=== PATIENT | male | born 1930 ===

== ENCOUNTER 2017-12-07 22:56 | Inpatient (IN) | payer MEDICARE, OTHER ==
[2017-12-07 22:56] VITALS: BMI 38.0
--- NOTE | 2017-12-07 23:07 | C.PDOC ---
History Of Present Illness 86 year old male presents to the ED from long-term for evaluation of rectal bleeding. Unable to obtain history from patient due to dementia. Per daughter, bleeding started today. Time Seen by Provider: 12/07/17 23:05 History Per: Family History/Exam Limitations: other (Dementia) Onset/Duration Of Symptoms: Hrs Additional History Per: Family Past Medical History Reviewed: Historical Data, Nursing Documentation, Vital Signs Vital Signs: Last Vital Signs Temp 98.9 F 12/07/17 23:10 Pulse 71 12/07/17 23:10 Resp 16 12/07/17 23:10 BP 145/65 12/07/17 23:10 Pulse Ox 95 12/08/17 00:00 - Medical History PMH: Alzheimer's Disease, Arthritis, Atrial Fibrillation, Cardia Arrhythmia (a fib), Diverticulitis, HTN Denies: Anxiety, Bipolar Disorder, Depression, Paranoia, Post Traumatic Stress Disorder, Chronic Kidney Disease, Schizophrenia Surgical History: Coronary Stent Denies: Pacemaker - [facility] Procedures CORONAR ARTERIOGR-2 CATH (05/12/04) ENDO RECTUM POLYPECTOMY (11/19/13) ENDOSC POLYPECTOMY OF LG INTEST (11/19/13) INSERT GASTRIC TUBE NEC (01/08/15) LEFT HEART CARDIAC CATH (05/12/04) LT HEART ANGIOCARDIOGRAM (05/12/04) OTHER C.A.T. SCAN (01/08/15) PACKED CELL TRANSFUSION (01/08/15) PERCUTAN ASPIRATION GB (01/08/15) REMOV CHOLECYSTOST TUBE (02/28/15) VACCINATION NEC (10/19/14) Family History: States: No Known Family Hx - Social History Hx Alcohol Use: No Hx Substance Use: No Review Of Systems Review Of Systems: ROS cannot be obtained secondary to pt's inabilty to answer questions. (due to dementia) Physical Exam - Physical Exam Appears: Non-toxic, No Acute Distress Skin: Warm, Dry, Pale Head: Normacephalic Eye(s): bilateral: Normal Inspection Oral Mucosa: Dry Neck: Trachea Midline, Supple Chest: Symmetrical Cardiovascular: Rhythm Regular (Rate Regular ) Respiratory: No Rales, No Rhonchi, No Wheezing Gastrointestinal/Abdominal: Soft, Distention (mildly distended, tympanic to percussion) Rectal: Other (bright red blood in rectal vault) Back: Normal Inspection Extremity: Normal ROM, Other (DP pulses 2+) Extremity: Bilateral: Atraumatic Neurological/Psych: No Oriented x3 (Alert and Oriented x1 ) Disoriented To: Place, Time, Situation ED Course And Treatment - Laboratory Results Result Diagrams: 12/07/17 23:40 12/07/17 23:40 ECG: Interpreted By Me, Viewed By Me ECG Rhythm: Sinus Rhythm (66), Nonspecific Changes O2 Sat by Pulse Oximetry: 95 Pulse Ox Interpretation: Normal - Radiology CXR: Interpreted by Me, Viewed By Me CXR Interpretation: Yes: Cardiomegaly. No: Infiltrates, Fracture, Pnemothorax Disposition Discussed With Dr.: Nas Escalona Comment: accepted the pt on his service and took over the care at 11:58 PM Doctor Will See Patient In The: Hospital Counseled Patient/Family Regarding: Studies Performed, Diagnosis - Disposition Disposition: HOSPITALIZED Disposition Time: 23:07 Condition: FAIR - POA Present On Arrival: Poor Glycemic Control - Clinical Impression Clinical Impression: Gastrointestinal hemorrhage - Scribe Statement The provider has reviewed the documentation as recorded by the Anand Craft Provider Attestation: All medical record entries made by the Andrewibe were at my direction and personally dictated by me. I have reviewed the chart and agree that the record accurately reflects my personal performance of the history, physical exam, medical decision making, and the department course for this patient. I have also personally directed, reviewed, and agree with the discharge instructions and disposition. Decision To Admit - Pt Status Changed To: Hospital Disposition Of: Inpatient - Admit Certification Admit to Inpatient:: After my assessment, the patient will require hospitalization for at least two midnights. This is because of the severity of symptoms shown, intensity of services needed, and/or the medical risk in this patient being treated as an outpatient. - InPatient: Physician Admission Certification: I certify that this patient requires 2 or more midnights of care for the following reason:: After my assessment, the patient will require hospitalization for at least two midnights. This is because of the severity of symptoms shown, intensity of services needed, and/or the medical risk in this patient being treated as an outpatient. - . Bed Request Type: Telemetry Admitting Physician: Nas Escalona Patient Diagnosis: Gastrointestinal hemorrhage
[2017-12-07] MEDS ORDERED: Pantoprazole 80 MG in Sodium Chloride 0.9% 100 ML IV STA (23:15)
[2017-12-07] MEDS ORDERED: Sodium Chloride 0.9% 1,000 ML IV ONE (23:15)
[2017-12-07 23:45] LABS: BASO # 0.1 K/uL (0.0-0.2); BASO % 0.8 % (0.0-2.0); EOS # 0.2 K/uL (0.0-0.7); EOS % 2.9 % (0.0-4.0); HEMOGLOBIN 10.5 g/dL (12.0-18.0); LYMPH # 1.3 K/uL (1.0-4.3); LYMPH % 19.9 % (20.0-40.0); MEAN CORPUSCULAR HEMOGLOBIN 33.6 pg (27.0-31.0); MEAN CORPUSCULAR HGB CONC 33.9 g/dL (33.0-37.0); MEAN PLATELET VOLUME 8.2 fL (7.2-11.7); MONO # 0.5 K/uL (0.0-0.8); MONO % 6.8 % (0.0-10.0); NEUT # 4.7 K/uL (1.8-7.0); NEUT % 69.6 % (50.0-75.0); RBC 3.14 Mil/uL (4.40-5.90); RED CELL DISTRIBUTION WIDTH 13.7 % (11.5-14.5); WHITE BLOOD COUNT 6.7 K/uL (4.8-10.8)
[2017-12-07] MEDS ORDERED: Pantoprazole 80 MG in Sodium Chloride 0.9% 100 ML IVP SCH (23:45)
[2017-12-07 23:52] LABS: INR 1.2; PROTHROMBIN TIME 13.3 SECONDS (9.7-12.2)
[2017-12-07 23:57] LABS: ALBUMIN 3.6 g/dL (3.5-5.0); ALT/SGPT 20 U/L (21-72); AST/SGOT 17 U/L (17-59); BLOOD UREA NITROGEN 22 mg/dL (9-20); CALCIUM 9.1 mg/dl (8.6-10.4); GFR AFRICAN-AMERICAN > 60; GFR NON-AFRICAN AMERICAN 52; LIPASE 237 U/L (23-300)
[2017-12-08] MEDS ORDERED: Pantoprazole 80 MG in Sodium Chloride 0.9% 100 ML IV SCH (01:05)
[2017-12-08] MEDS ORDERED: Iohexol 240 (50 ml) PO ONE (06:54)
[2017-12-08] MEDS ORDERED: Iohexol 240 (50 ml) ONE (07:02)
[2017-12-08 07:15] LABS: BASO % 0.7 % (0.0-2.0); EOS # 0.2 K/uL (0.0-0.7); EOS % 4.2 % (0.0-4.0); HEMOGLOBIN 9.9 g/dL (12.0-18.0); LYMPH # 1.7 K/uL (1.0-4.3); LYMPH % 31.2 % (20.0-40.0); MEAN CELL VOLUME 99.5 fL (80.0-94.0); MEAN CORPUSCULAR HEMOGLOBIN 34.1 pg (27.0-31.0); MEAN CORPUSCULAR HGB CONC 34.2 g/dL (33.0-37.0); MEAN PLATELET VOLUME 8.2 fL (7.2-11.7); MONO # 0.4 K/uL (0.0-0.8); NEUT # 3.1 K/uL (1.8-7.0); NEUT % 56.9 % (50.0-75.0); NRBC % 0.1 % (0.0-2.0); RBC 2.9 Mil/uL (4.40-5.90); RED CELL DISTRIBUTION WIDTH 13.7 % (11.5-14.5); WHITE BLOOD COUNT 5.5 K/uL (4.8-10.8)
[2017-12-08 07:20] LABS: INR 1.2; PROTHROMBIN TIME 13.7 SECONDS (9.7-12.2)
[2017-12-08 07:27] LABS: ALBUMIN 3.4 g/dL (3.5-5.0); ALT/SGPT 15 U/L (21-72); AST/SGOT 15 U/L (17-59); BLOOD UREA NITROGEN 23 mg/dL (9-20); CALCIUM 9.3 mg/dl (8.6-10.4); GFR AFRICAN-AMERICAN > 60; GFR NON-AFRICAN AMERICAN 57
[2017-12-08] MEDS ORDERED: Iohexol 300 100 ML IJ ONE (07:37)
--- NOTE | 2017-12-08 07:42 | RAD ---
Chest x-ray single frontal view History: GI bleeding. Comparison: 12/07/2017 Findings: Mild venous congestion. Right hilar prominence. Patchy increased markings at the left lung base. Enlarged ectatic aorta with calcification at the aortic knob. Mild cardiomegaly. Degenerative changes in the spine and shoulders. Impression: Mild venous congestion. Right hilar prominence. Patchy increased markings at the left lung base. Enlarged ectatic aorta with calcification at the aortic knob. Mild cardiomegaly.
--- NOTE | 2017-12-08 08:40 | CP.PCM.CON ---
<Alexandro Buchanan - Last Filed: 12/08/17 10:12> History of Present Illness - History of Present Illness History of Present Illness: PGY5 GI Fellow Consult Note Patient is an 86yo male with PMHx significant for prostate cancer s/p brachytherapy, CAD s/p PCI, CKD, diverticulosis/diverticulitis, HTN, Alzheimer' s dementia who presented to the ED with rectal bleeding. The patient suffers with dementia and cannot provide any history. I spoke with the patient's daughter and with [facility] staff to discuss this case. Per the [place], the patient experienced one episode of bright red blood per rectum yesterday morning. He AM plavix was held and he was monitored until the evening when he had a second episode and was immediately transferred to the ED. Per ED staff, he had small episode of BRBPR at around 4am. On my arrival at bedside, the patient has recently had a significant amount of melena with some fresh blood as well. He denies any pain or discomfort and vitals have been stable throughout. His most recent HGB per [place] was 10.8 on 08/26/17. PMHx: See HPI PSHx: cholecystostomy tube, appendectomy, PCI FHx: Discussed with daughter who does not note any significant family history Social: No prior EtOH, tobacco or illicit drug use Endo: Colonoscopy - 11/2013 - multiple polyps, tubular adenomas 12 system ROS cannot be performed given clinical condition Past Patient History - Infectious Disease Hx of Infectious Diseases: None - Tetanus Immunizations Tetanus Immunization: Unknown - Past Social History Smoking Status: Former Smoker - CARDIAC Hx Atrial Fibrillation: Yes Hx Cardia Arrhythmia: Yes (a fib) Hx Hypertension: Yes Hx Pacemaker: No - PULMONARY Hx Respiratory Disorders: No - NEUROLOGICAL Hx Alzheimer's Disease: Yes - HEENT Hx HEENT Problems: No - RENAL Hx Chronic Kidney Disease: No - ENDOCRINE/METABOLIC Hx Endocrine Disorders: No - HEMATOLOGICAL/ONCOLOGICAL Hx Blood Disorders: Yes Hx Blood Transfusions: Yes (01/2015) Hx Blood Transfusion Reaction: No - INTEGUMENTARY Hx Dermatological Problems: No - MUSCULOSKELETAL/RHEUMATOLOGICAL Hx Arthritis: Yes - GASTROINTESTINAL Hx Diverticulitis: Yes - GENITOURINARY/GYNECOLOGICAL Hx Genitourinary Disorders: No - PSYCHIATRIC Hx Anxiety: No Hx Bipolar Disorder: No Hx Depression: No Hx Paranoia: No Hx Post Traumatic Stress Disorder: No Hx Schizophrenia: No Hx Substance Use: No - SURGICAL HISTORY Hx Coronary Stent: Yes - ANESTHESIA Hx Anesthesia: Yes Hx Anesthesia Reactions: No Hx Malignant Hyperthermia: No Meds Allergies/Adverse Reactions: Allergies Allergy/AdvReac Type Severity Reaction Status Date / Time No Known Allergies Allergy Verified 12/07/17 23:13 - Medications Medications: Current Medications Pantoprazole Sodium 80 mg/ (Sodium Chloride) 100 mls @ 10 mls/hr IV .Q10H PEPE PRN Reason: 8 MG/HR Last Admin: 12/08/17 01:07 Dose: 10 mls/hr Physical Exam - Constitutional Appears: No Acute Distress, Confused - Eye Exam Eye Exam: EOMI, PERRL Additional comments: scleral pallor - ENT Exam ENT Exam: Mucous Membranes Dry - Respiratory Exam Respiratory Exam: Clear to Auscultation Bilateral. absent: Rales, Rhonchi, Wheezes - Cardiovascular Exam Cardiovascular Exam: Bradycardia, REGULAR RHYTHM, +S1, +S2 - GI/Abdominal Exam GI & Abdominal Exam: Normal Bowel Sounds, Soft. absent: Distended, Firm, Guarding, Organomegaly, Rigid, Tenderness - Rectal Exam Rectal Exam: absent: Hemorrhoids Additional comments: black tarry stool noted on bed sheets with some fresh blood; brown stool in rectal vault - Extremities Exam Extremities exam: Positive for: normal inspection. Negative for: pedal edema - Neurological Exam Neurological exam: Altered - Psychiatric Exam Psychiatric exam: Normal Affect, Normal Mood - Skin Skin Exam: Dry, Warm Results - Vital Signs Recent Vital Signs: Last Vital Signs Temp 97.6 F 12/08/17 04:58 Pulse 65 12/08/17 08:10 Resp 18 12/08/17 08:10 BP 145/45 L 12/08/17 08:10 Pulse Ox 99 12/08/17 08:10 - Labs Result Diagrams: 12/08/17 07:12 12/08/17 07:12 Labs: Laboratory Results - last 24 hr 12/07/17 12/07/17 12/07/17 23:40 23:40 23:40 WBC 6.7 RBC 3.14 L Hgb 10.5 L Hct 31.1 L MCV 99.0 H MCH 33.6 H MCHC 33.9 RDW 13.7 Plt Count 243 MPV 8.2 Neut % (Auto) 69.6 Lymph % (Auto) 19.9 L [place] % (Auto) 6.8 Eos % (Auto) 2.9 Baso % (Auto) 0.8 Neut # (Auto) 4.7 Lymph # (Auto) 1.3 [place] # (Auto) 0.5 Eos # (Auto) 0.2 Baso # (Auto) 0.1 PT 13.3 H INR 1.2 APTT 33 Sodium Potassium Chloride Carbon Dioxide Anion Gap BUN Creatinine Est GFR ( Amer) Est GFR (Non-Af Amer) Random Glucose Calcium Total Bilirubin AST ALT Alkaline Phosphatase Total Protein Albumin Globulin Albumin/Globulin Ratio Lipase Stool Occult Blood Positive H Blood Type Antibody Screen 12/07/17 12/07/17 12/08/17 23:40 23:40 07:12 WBC 5.5 RBC 2.90 L Hgb 9.9 L Hct 28.9 L MCV 99.5 H MCH 34.1 H MCHC 34.2 RDW 13.7 Plt Count 195 MPV 8.2 Neut % (Auto) 56.9 Lymph % (Auto) 31.2 [place] % (Auto) 7.0 Eos % (Auto) 4.2 H Baso % (Auto) 0.7 Neut # (Auto) 3.1 Lymph # (Auto) 1.7 [place] # (Auto) 0.4 Eos # (Auto) 0.2 Baso # (Auto) 0.0 PT INR APTT Sodium 145 Potassium 3.3 L Chloride 110 H Carbon Dioxide 24 Anion Gap 15 BUN 22 H Creatinine 1.3 Est GFR ( Amer) > 60 Est GFR (Non-Af Amer) 52 Random Glucose 148 H Calcium 9.1 Total Bilirubin 0.2 AST 17 ALT 20 L Alkaline Phosphatase 128 H Total Protein 7.2 Albumin 3.6 Globulin 3.6 Albumin/Globulin Ratio 1.0 Lipase 237 Stool Occult Blood Blood Type O NEGATIVE Antibody Screen Negative 12/08/17 12/08/17 07:12 07:12 WBC RBC Hgb Hct MCV MCH MCHC RDW Plt Count MPV Neut % (Auto) Lymph % (Auto) [place] % (Auto) Eos % (Auto) Baso % (Auto) Neut # (Auto) Lymph # (Auto) [place] # (Auto) Eos # (Auto) Baso # (Auto) PT 13.7 H INR 1.2 APTT Sodium 145 Potassium 3.4 L Chloride 111 H Carbon Dioxide 22 Anion Gap 15 BUN 23 H Creatinine 1.2 Est GFR ( Amer) > 60 Est GFR (Non-Af Amer) 57 Random Glucose 117 H Calcium 9.3 Total Bilirubin 0.2 AST 15 L ALT 15 L D Alkaline Phosphatase 112 Total Protein 6.7 Albumin 3.4 L Globulin 3.3 Albumin/Globulin Ratio 1.0 Lipase Stool Occult Blood Blood Type Antibody Screen Assessment & Plan - Assessment and Plan (Free Text) Assessment: Patient is an 86yo male with PMHx significant for prostate cancer s/p brachytherapy, CAD s/p PCI, CKD, diverticulosis/diverticulitis, HTN, Alzheimer' s dementia who presented to the ED with rectal bleeding -Acute blood loss anemia -Severe constipation -Diverticulosis/diverticulitis -CAD s/p PCI on Plavix -H/O prostate cancer s/p brachytherapy -Alzheimer's dementia Plan: -Continue resuscitation with IVF and blood transfusion as needed -Monitor CBC Q12H -Change PPI gtt to IV BID -As patient remains hemodynamically stable and has brown stool in rectal vault, with recent plavix use - will continue supportive measures and consider endoscopy during this admission if indicated -CT A/P pending -Continue to hold plavix -Liquid diet - Date & Time Date: 12/08/17 Time: 06:50 <Ed Mullins - Last Filed: 12/08/17 10:58> Meds - Medications Medications: Current Medications Albuterol/Ipratropium (Duoneb 3 Mg/0.5 Mg (3 Ml) Ud) 3 ml IH RQ6 PRN PRN Reason: Shortness of Breath Potassium Chloride (Potassium Chloride 20 Meq/100 Ml) 20 meq in 100 mls @ 50 mls/hr IVPB ONCE ONE Stop: 12/08/17 10:50 Last Admin: 12/08/17 10:08 Dose: 50 mls/hr Sodium Chloride (Sodium Chloride 0.9%) 1,000 mls @ 50 mls/hr IV .Q20H PEPE Last Admin: 12/08/17 09:48 Dose: 50 mls/hr Pantoprazole Sodium (Protonix Inj) 40 mg IVP Q12H PEPE Results - Vital Signs Recent Vital Signs: Last Vital Signs Temp 97.6 F 12/08/17 04:58 Pulse 62 12/08/17 10:15 Resp 16 12/08/17 10:15 BP 155/45 H 12/08/17 10:15 Pulse Ox 99 02/25/18 10:15 - Labs Result Diagrams: 12/08/17 07:12 12/08/17 07:12 Labs: Laboratory Results - last 24 hr 12/07/17 12/07/17 12/07/17 23:40 23:40 23:40 WBC 6.7 RBC 3.14 L Hgb 10.5 L Hct 31.1 L MCV 99.0 H MCH 33.6 H MCHC 33.9 RDW 13.7 Plt Count 243 MPV 8.2 Neut % (Auto) 69.6 Lymph % (Auto) 19.9 L [place] % (Auto) 6.8 Eos % (Auto) 2.9 Baso % (Auto) 0.8 Neut # (Auto) 4.7 Lymph # (Auto) 1.3 [place] # (Auto) 0.5 Eos # (Auto) 0.2 Baso # (Auto) 0.1 PT 13.3 H INR 1.2 APTT 33 Sodium Potassium Chloride Carbon Dioxide Anion Gap BUN Creatinine Est GFR ( Amer) Est GFR (Non-Af Amer) Random Glucose Calcium Total Bilirubin AST ALT Alkaline Phosphatase Total Protein Albumin Globulin Albumin/Globulin Ratio Lipase Stool Occult Blood Positive H Blood Type Antibody Screen 12/07/17 12/07/17 12/08/17 23:40 23:40 07:12 WBC 5.5 RBC 2.90 L Hgb 9.9 L Hct 28.9 L MCV 99.5 H MCH 34.1 H MCHC 34.2 RDW 13.7 Plt Count 195 MPV 8.2 Neut % (Auto) 56.9 Lymph % (Auto) 31.2 [place] % (Auto) 7.0 Eos % (Auto) 4.2 H Baso % (Auto) 0.7 Neut # (Auto) 3.1 Lymph # (Auto) 1.7 [place] # (Auto) 0.4 Eos # (Auto) 0.2 Baso # (Auto) 0.0 PT INR APTT Sodium 145 Potassium 3.3 L Chloride 110 H Carbon Dioxide 24 Anion Gap 15 BUN 22 H Creatinine 1.3 Est GFR ( Amer) > 60 Est GFR (Non-Af Amer) 52 Random Glucose 148 H Calcium 9.1 Total Bilirubin 0.2 AST 17 ALT 20 L Alkaline Phosphatase 128 H Total Protein 7.2 Albumin 3.6 Globulin 3.6 Albumin/Globulin Ratio 1.0 Lipase 237 Stool Occult Blood Blood Type O NEGATIVE Antibody Screen Negative 12/08/17 12/08/17 07:12 07:12 WBC RBC Hgb Hct MCV MCH MCHC RDW Plt Count MPV Neut % (Auto) Lymph % (Auto) [place] % (Auto) Eos % (Auto) Baso % (Auto) Neut # (Auto) Lymph # (Auto) [place] # (Auto) Eos # (Auto) Baso # (Auto) PT 13.7 H INR 1.2 APTT Sodium 145 Potassium 3.4 L Chloride 111 H Carbon Dioxide 22 Anion Gap 15 BUN 23 H Creatinine 1.2 Est GFR ( Amer) > 60 Est GFR (Non-Af Amer) 57 Random Glucose 117 H Calcium 9.3 Total Bilirubin 0.2 AST 15 L ALT 15 L D Alkaline Phosphatase 112 Total Protein 6.7 Albumin 3.4 L Globulin 3.3 Albumin/Globulin Ratio 1.0 Lipase Stool Occult Blood Blood Type Antibody Screen Attending/Attestation - Attestation I have personally seen and examined this patient.: Yes I have fully participated in the care of the patient.: Yes I have reviewed all pertinent clinical information: Yes Notes (Text): 12/08/17 10:48 I have seen and examined patient with GI fellow. Agree with above documentation with the following additions. In brief, this is an 86 year old male with history of prostate cancer, CAD s/p stent on plavix, CKD, HTN, dementia who presents to hospital from nursing facility with complaint of rectal bleeding which started yesterday. Patient is unable to participate in meaningful conversation due to underlying dementia, additional history obtained via chart review, discussion with patient's daughter and nursing staff at nursing facility. He apparently had an episode of bright red rectal bleeding yesterday at which point his plavix was held. He was not offering additional complaints of abdominal pain, nausea, vomiting, fever/chills, weight loss. He had a colonoscopy in 2013 which showed multiple colon polyps and diverticulosis. Review of vitals from today are normal. CAD s/p stent on plavix (currently held) CKD HTN Dementia Rectal bleeding - rectal exam performed by me shows mixed brown stool with bright red blood, no palpable lesions, normal sphincter tone CT imaging reviewed by me showing distended rectum with associated wall thickening, scattered diverticulosis, constipation - Liquid diet as tolerated - H/H stable, continue to monitor - Continue with PPI therapy - Begin stool softner therapy - Conservative management with IVF hydration - Given recent plavix use, will hold off on endoscopic evaluation for time being and continue to monitor. If recurrent bleeding noted, patient would benefit from colonoscopy. Differential includes stercoral ulcer, diverticular/ hemorrhoid bleeding, or underlying malignancy. Will continue to monitor clinical course.
[2017-12-08] MEDS ORDERED: Albuterol-Ipratrop 3 mg / 0.5 (3 ml) UD IH PRN (08:49)
--- NOTE | 2017-12-08 09:13 | CT ---
CT abdomen and pelvis History: Rectal bleeding. Comparison: None available. Technique: Multiple contiguous axial images were performed through the abdomen and pelvis with the use of intravenous contrast. Subsequently, sagittal and coronal reformatted images were obtained. This CT exam was performed using one or more of the following dose reduction techniques: Automated exposure control, adjustment of the mA and/or kV according to patient size, and/or use of iterative reconstruction technique. Findings: Limited evaluation of the lung bases demonstrates some scarring and fibrotic changes. Superimposed atelectasis. 2 millimeter subpleural nodular density along the anterior aspect of the right middle lobe. 2 millimeter nodule within the right lower lobe on series 3, image 11. Coronary calcifications. No pleural or pericardial effusion. Prominent liver with mild intrahepatic biliary ductal dilatation. Underdistended/contracted and or resected gallbladder. Mildly prominent common bile duct. Clinical correlation. Spleen is preserved. Mild nodularity of the adrenal glands. Pancreas is preserved. Upper abdominal bowel is preserved. Right kidney: 7 millimeter partially exophytic hypoattenuated focus off the midpole of the right kidney, too small to adequately characterize. Left Kidney: Punctate hypodensity in the midpole anteriorly of the left kidney, too small to adequately characterize. Underdistended urinary bladder. Heterogeneous prostate. Distended rectum with some with some associated rectal wall thickening. Mild adjacent fat stranding at that level. Underlying stercoral colitis cannot be excluded. Clinical correlation. Sigmoid diverticulosis. Minimal fat stranding adjacent to some diverticuli at the level of the distal descending colon. Fecal retention in the colon. Some motion artifact at the level of the cecum, somewhat limits evaluation. Cecal diverticula. Mild fat stranding at the posterior aspect of the cecum. Nonspecific. Appendix appears to be visualized on series 3, images 106 through 113 measuring up to 7 millimeters, upper limits of normal. Calcification and plaque within the aorta. Shotty mesenteric lymph nodes. Diffuse osteopenia. Mild loss of height of the superior endplates of the T11, L2, and L3 vertebral bodies. Multilevel anterior osteophyte formation throughout the thoracic spine. Multilevel Schmorl's nodes noted. Impression: Distended rectum with some with some associated rectal wall thickening. Mild adjacent fat stranding at that level. Underlying stercoral colitis cannot be excluded. Clinical correlation. Sigmoid diverticulosis. Minimal fat stranding adjacent to some diverticuli at the level of the distal descending colon. Fecal retention in the colon. Some motion artifact at the level of the cecum, somewhat limits evaluation. Cecal diverticula. Mild fat stranding at the posterior aspect of the cecum. Nonspecific. Additional findings as above.
[2017-12-08] MEDS: Sodium Chloride 0.9% 1,000 ML IV SCH (09:48)
[2017-12-08 11:47] LABS: SQUAMOUS EPITHIAL < 1 /hpf (0-5); URINE BILIRUBIN NEGATIVE (NEGATIVE); URINE BLOOD 1+ (NEGATIVE); URINE CLARITY Clear (Clear); URINE COLOR Yellow (YELLOW); URINE GLUCOSE (UA) NORMAL (Normal); URINE LEUKOCYTE ESTERASE NEG Leu/uL (Negative); URINE NITRATE NEGATIVE (NEGATIVE); URINE PROTEIN 1+ mg/dL (NEGATIVE); URINE UROBILINOGEN NORMAL mg/dL (0.2-1.0)
[2017-12-08 15:31] LABS: LYMPH # 1.7 K/uL (1.0-4.3)
[2017-12-08 15:40] LABS: BASO % 0.6 % (0.0-2.0); EOS # 0.3 K/uL (0.0-0.7); EOS % 4.2 % (0.0-4.0); HEMOGLOBIN 10.9 g/dL (12.0-18.0); LYMPH % 27.5 % (20.0-40.0); MEAN CORPUSCULAR HEMOGLOBIN 33.5 pg (27.0-31.0); MEAN CORPUSCULAR HGB CONC 33.5 g/dL (33.0-37.0); MEAN PLATELET VOLUME 8.1 fL (7.2-11.7); MONO # 0.4 K/uL (0.0-0.8); MONO % 5.5 % (0.0-10.0); NEUT # 3.9 K/uL (1.8-7.0); NEUT % 62.2 % (50.0-75.0); RBC 3.25 Mil/uL (4.40-5.90); RED CELL DISTRIBUTION WIDTH 13.7 % (11.5-14.5); WHITE BLOOD COUNT 6.4 K/uL (4.8-10.8)
--- NOTE | 2017-12-08 16:27 | CP.PCM.HP ---
Past Patient History - Infectious Disease Hx of Infectious Diseases: None - Tetanus Immunizations Tetanus Immunization: Unknown - Past Social History Smoking Status: Former Smoker - CARDIAC Hx Atrial Fibrillation: Yes Hx Cardia Arrhythmia: Yes (a fib) Hx Hypertension: Yes Hx Pacemaker: No - PULMONARY Hx Respiratory Disorders: No - NEUROLOGICAL Hx Alzheimer's Disease: Yes - HEENT Hx HEENT Problems: No - RENAL Hx Chronic Kidney Disease: No - ENDOCRINE/METABOLIC Hx Endocrine Disorders: No - HEMATOLOGICAL/ONCOLOGICAL Hx Blood Disorders: Yes Hx Blood Transfusions: Yes (01/2015) Hx Blood Transfusion Reaction: No - INTEGUMENTARY Hx Dermatological Problems: No - MUSCULOSKELETAL/RHEUMATOLOGICAL Hx Arthritis: Yes - GASTROINTESTINAL Hx Diverticulitis: Yes - GENITOURINARY/GYNECOLOGICAL Hx Genitourinary Disorders: No - PSYCHIATRIC Hx Anxiety: No Hx Bipolar Disorder: No Hx Depression: No Hx Paranoia: No Hx Post Traumatic Stress Disorder: No Hx Schizophrenia: No Hx Substance Use: No - SURGICAL HISTORY Hx Coronary Stent: Yes - ANESTHESIA Hx Anesthesia: Yes Hx Anesthesia Reactions: No Hx Malignant Hyperthermia: No Meds Allergies/Adverse Reactions: Allergies Allergy/AdvReac Type Severity Reaction Status Date / Time No Known Allergies Allergy Verified 12/07/17 23:13 Physical Exam - Constitutional Appears: Well - Head Exam Head Exam: ATRAUMATIC, NORMAL INSPECTION, NORMOCEPHALIC - Eye Exam Eye Exam: EOMI, Normal appearance, PERRL Pupil Exam: NORMAL ACCOMODATION, PERRL - ENT Exam ENT Exam: Mucous Membranes Moist, Normal Exam - Neck Exam Neck exam: Positive for: Normal Inspection - Respiratory Exam Respiratory Exam: Decreased Breath Sounds - Cardiovascular Exam Cardiovascular Exam: REGULAR RHYTHM, +S1, +S2 - GI/Abdominal Exam GI & Abdominal Exam: Diminished Bowel Sounds, Soft - Rectal Exam Rectal Exam: Deferred Results - Vital Signs Recent Vital Signs: Last Vital Signs Temp 97.7 F 12/08/17 11:31 Pulse 61 12/08/17 15:19 Resp 18 12/08/17 15:19 BP 156/48 H 12/08/17 15:19 Pulse Ox 98 12/08/17 15:19 - Labs Result Diagrams: 12/08/17 15:27 12/08/17 07:12 Labs: Laboratory Results - last 24 hr 12/07/17 12/07/17 12/07/17 23:40 23:40 23:40 WBC 6.7 RBC 3.14 L Hgb 10.5 L Hct 31.1 L MCV 99.0 H MCH 33.6 H MCHC 33.9 RDW 13.7 Plt Count 243 MPV 8.2 Neut % (Auto) 69.6 Lymph % (Auto) 19.9 L Bacon % (Auto) 6.8 Eos % (Auto) 2.9 Baso % (Auto) 0.8 Neut # (Auto) 4.7 Lymph # (Auto) 1.3 Bacon # (Auto) 0.5 Eos # (Auto) 0.2 Baso # (Auto) 0.1 PT 13.3 H INR 1.2 APTT 33 Sodium Potassium Chloride Carbon Dioxide Anion Gap BUN Creatinine Est GFR ( Amer) Est GFR (Non-Af Amer) Random Glucose Calcium Total Bilirubin AST ALT Alkaline Phosphatase Total Protein Albumin Globulin Albumin/Globulin Ratio Lipase Urine Color Urine Clarity Urine pH Ur Specific [place] Urine Protein Urine Glucose (UA) Urine Ketones Urine Blood Urine Nitrate Urine Bilirubin Urine Urobilinogen Ur Leukocyte Esterase Urine WBC (Auto) Urine RBC (Auto) Ur Squamous Epith Cells Stool Occult Blood Positive H Blood Type Antibody Screen 12/07/17 12/07/17 12/08/17 23:40 23:40 07:12 WBC 5.5 RBC 2.90 L Hgb 9.9 L Hct 28.9 L MCV 99.5 H MCH 34.1 H MCHC 34.2 RDW 13.7 Plt Count 195 MPV 8.2 Neut % (Auto) 56.9 Lymph % (Auto) 31.2 Bacon % (Auto) 7.0 Eos % (Auto) 4.2 H Baso % (Auto) 0.7 Neut # (Auto) 3.1 Lymph # (Auto) 1.7 Bacon # (Auto) 0.4 Eos # (Auto) 0.2 Baso # (Auto) 0.0 PT INR APTT Sodium 145 Potassium 3.3 L Chloride 110 H Carbon Dioxide 24 Anion Gap 15 BUN 22 H Creatinine 1.3 Est GFR ( Amer) > 60 Est GFR (Non-Af Amer) 52 Random Glucose 148 H Calcium 9.1 Total Bilirubin 0.2 AST 17 ALT 20 L Alkaline Phosphatase 128 H Total Protein 7.2 Albumin 3.6 Globulin 3.6 Albumin/Globulin Ratio 1.0 Lipase 237 Urine Color Urine Clarity Urine pH Ur Specific [place] Urine Protein Urine Glucose (UA) Urine Ketones Urine Blood Urine Nitrate Urine Bilirubin Urine Urobilinogen Ur Leukocyte Esterase Urine WBC (Auto) Urine RBC (Auto) Ur Squamous Epith Cells Stool Occult Blood Blood Type O NEGATIVE Antibody Screen Negative 12/08/17 12/08/17 12/08/17 07:12 07:12 11:31 WBC RBC Hgb Hct MCV MCH MCHC RDW Plt Count MPV Neut % (Auto) Lymph % (Auto) Bacon % (Auto) Eos % (Auto) Baso % (Auto) Neut # (Auto) Lymph # (Auto) Bacon # (Auto) Eos # (Auto) Baso # (Auto) PT 13.7 H INR 1.2 APTT Sodium 145 Potassium 3.4 L Chloride 111 H Carbon Dioxide 22 Anion Gap 15 BUN 23 H Creatinine 1.2 Est GFR ( Amer) > 60 Est GFR (Non-Af Amer) 57 Random Glucose 117 H Calcium 9.3 Total Bilirubin 0.2 AST 15 L ALT 15 L D Alkaline Phosphatase 112 Total Protein 6.7 Albumin 3.4 L Globulin 3.3 Albumin/Globulin Ratio 1.0 Lipase Urine Color Yellow Urine Clarity Clear Urine pH 5.0 Ur Specific [place] 1.005 Urine Protein 1+ H Urine Glucose (UA) Normal Urine Ketones Negative Urine Blood 1+ H Urine Nitrate Negative Urine Bilirubin Negative Urine Urobilinogen Normal Ur Leukocyte Esterase Neg Urine WBC (Auto) 1 Urine RBC (Auto) 16 H Ur Squamous Epith Cells < 1 Stool Occult Blood Blood Type Antibody Screen 12/08/17 15:27 WBC 6.4 RBC 3.25 L Hgb 10.9 L Hct 32.5 L MCV 100.0 H MCH 33.5 H MCHC 33.5 RDW 13.7 Plt Count 227 MPV 8.1 Neut % (Auto) 62.2 Lymph % (Auto) 27.5 Bacon % (Auto) 5.5 Eos % (Auto) 4.2 H Baso % (Auto) 0.6 Neut # (Auto) 3.9 Lymph # (Auto) 1.7 Bacon # (Auto) 0.4 Eos # (Auto) 0.3 Baso # (Auto) 0.0 PT INR APTT Sodium Potassium Chloride Carbon Dioxide Anion Gap BUN Creatinine Est GFR ( Amer) Est GFR (Non-Af Amer) Random Glucose Calcium Total Bilirubin AST ALT Alkaline Phosphatase Total Protein Albumin Globulin Albumin/Globulin Ratio Lipase Urine Color Urine Clarity Urine pH Ur Specific [place] Urine Protein Urine Glucose (UA) Urine Ketones Urine Blood Urine Nitrate Urine Bilirubin Urine Urobilinogen Ur Leukocyte Esterase Urine WBC (Auto) Urine RBC (Auto) Ur Squamous Epith Cells Stool Occult Blood Blood Type Antibody Screen
[2017-12-08 23:34] LABS: BASO # 0.1 K/uL (0.0-0.2); BASO % 1.4 % (0.0-2.0); EOS # 0.3 K/uL (0.0-0.7); HEMOGLOBIN 9.8 g/dL (12.0-18.0); LYMPH % 32.4 % (20.0-40.0); MEAN CELL VOLUME 99.9 fL (80.0-94.0); MEAN PLATELET VOLUME 8.3 fL (7.2-11.7); MONO # 0.5 K/uL (0.0-0.8); MONO % 7.7 % (0.0-10.0); NEUT # 3.3 K/uL (1.8-7.0); NEUT % 53.5 % (50.0-75.0); RBC 2.88 Mil/uL (4.40-5.90); RED CELL DISTRIBUTION WIDTH 13.6 % (11.5-14.5); WHITE BLOOD COUNT 6.2 K/uL (4.8-10.8)
[2017-12-09] MEDS: Sodium Chloride 0.9% 1,000 ML IV SCH (05:12)
[2017-12-09 08:14] LABS: BASO % 0.8 % (0.0-2.0); EOS # 0.3 K/uL (0.0-0.7); EOS % 5.7 % (0.0-4.0); HEMOGLOBIN 9.2 g/dL (12.0-18.0); LYMPH # 1.5 K/uL (1.0-4.3); LYMPH % 28.3 % (20.0-40.0); MEAN CELL VOLUME 99.8 fL (80.0-94.0); MEAN CORPUSCULAR HEMOGLOBIN 33.5 pg (27.0-31.0); MEAN CORPUSCULAR HGB CONC 33.5 g/dL (33.0-37.0); MEAN PLATELET VOLUME 7.9 fL (7.2-11.7); MONO # 0.3 K/uL (0.0-0.8); MONO % 5.6 % (0.0-10.0); NEUT # 3.1 K/uL (1.8-7.0); NEUT % 59.6 % (50.0-75.0); RBC 2.74 Mil/uL (4.40-5.90); RED CELL DISTRIBUTION WIDTH 13.6 % (11.5-14.5); WHITE BLOOD COUNT 5.2 K/uL (4.8-10.8)
--- NOTE | 2017-12-09 08:18 | CP.PCM.PN ---
<ChanelAlexandro - Last Filed: 12/09/17 13:40> Subjective - Date & Time of Evaluation Date of Evaluation: 12/09/17 Time of Evaluation: 07:10 - Subjective Subjective: PGY5 GI Fellow Progress Note Patient seen and examined in the ER this morning. The patient continues to deny any complaints. Specifically, he denies any abdominal pain, nausea, vomiting, fever, chills, rectal pain. Per discussion with nursing, patient has had two small episodes of red, bloody stool since yesterday afternoon. Again this afternoon patient passing large amount of melena. Vitals have remained stable throughout hospitalization. 12 system ROS cannot be performed given patient's dementia. Objective - Vital Signs/Intake and Output Vital Signs (last 24 hours): Temp Pulse Resp BP Pulse Ox 97.5 F L 56 L 15 130/47 L 95 12/09/17 07:46 12/09/17 07:46 12/09/17 07:46 12/09/17 07:46 12/09/17 07:46 Intake and Output: 12/09/17 12/09/17 06:59 18:59 Intake Total 1000 Output Total 4 Balance 996 - Medications Medications: Current Medications Albuterol/Ipratropium (Duoneb 3 Mg/0.5 Mg (3 Ml) Ud) 3 ml IH RQ6 PRN PRN Reason: Shortness of Breath Docusate Sodium (Colace) 100 mg PO BID COUNTS INCLUDE 234 BEDS AT THE [facility] Last Admin: 12/08/17 19:39 Dose: 100 mg Sodium Chloride (Sodium Chloride 0.9%) 1,000 mls @ 50 mls/hr IV .Q20H COUNTS INCLUDE 234 BEDS AT THE [facility] Last Admin: 12/09/17 05:12 Dose: 50 mls/hr Pantoprazole Sodium (Protonix Inj) 40 mg IVP Q12H COUNTS INCLUDE 234 BEDS AT THE [facility] Last Admin: 12/08/17 23:08 Dose: 40 mg - Labs Labs: 12/08/17 23:31 12/08/17 07:12 PT 13.7 SECONDS (9.7-12.2) H 12/08/17 07:12 INR 1.2 12/08/17 07:12 APTT 33 SECONDS (21-34) 12/07/17 23:40 - Constitutional Appears: Non-toxic, No Acute Distress - Eye Exam Eye Exam: EOMI, PERRL - ENT Exam ENT Exam: Mucous Membranes Moist - Respiratory Exam Respiratory Exam: Clear to Ausculation Bilateral. absent: Rales, Rhonchi, Wheezes - Cardiovascular Exam Cardiovascular Exam: Bradycardia, +S1, +S2 - GI/Abdominal Exam GI & Abdominal Exam: Soft, Normal Bowel Sounds. absent: Distended, Firm, Guarding, Rigid, Tenderness, Organomegaly - Extremities Exam Extremities Exam: Normal Inspection. absent: Pedal Edema - Neurological Exam Neurological Exam: Altered, Awake - Psychiatric Exam Psychiatric exam: Normal Affect, Normal Mood - Skin Skin Exam: Dry, Warm Assessment and Plan - Assessment and Plan (Free Text) Assessment: Patient is an 86yo male with PMHx significant for prostate cancer s/p brachytherapy, CAD s/p PCI, CKD, diverticulosis/diverticulitis, HTN, Alzheimer' s dementia who presented to the ED with rectal bleeding -Acute blood loss anemia, melena -Severe constipation -Diverticulosis/diverticulitis -CAD s/p PCI on Plavix (currently held since 12/06) -CKD -HTN -H/O prostate cancer s/p brachytherapy -Alzheimer's dementia Plan: -Vitals remain stable throughout - HGB downtrending from admission -Recurrent melena noted -Change CBC to Q12H -Protonix 40mg IV BID -Colace 100mg PO BID -Continue to hold plavix - consider endoscopic intervention Saturday if bleeding continues -Given significant stool burden, patient could have stercoral ulcer; also with history of diverticulosis which could be etiology -Will perform urgent EGD today given persistence of melena despite medical therapy -Patient's has given consent for procedure - understands risks/benefits <Conrad Reid - Last Filed: 12/09/17 21:14> Objective - Vital Signs/Intake and Output Vital Signs (last 24 hours): Temp Pulse Resp BP Pulse Ox 97.3 F L 58 L 20 159/56 H 98 12/09/17 16:35 12/09/17 16:35 12/09/17 16:35 12/09/17 16:35 12/09/17 16:35 Intake and Output: 12/09/17 12/10/17 18:59 06:59 Intake Total 730 Balance 730 - Medications Medications: Current Medications Albuterol/Ipratropium (Duoneb 3 Mg/0.5 Mg (3 Ml) Ud) 3 ml IH RQ6 PRN PRN Reason: Shortness of Breath Docusate Sodium (Colace) 100 mg PO BID COUNTS INCLUDE 234 BEDS AT THE [facility] Last Admin: 12/09/17 19:12 Dose: 100 mg Sodium Chloride (Sodium Chloride 0.9%) 1,000 mls @ 50 mls/hr IV .Q20H COUNTS INCLUDE 234 BEDS AT THE [facility] Last Admin: 12/09/17 05:12 Dose: 50 mls/hr Pantoprazole Sodium (Protonix Inj) 40 mg IVP Q12H COUNTS INCLUDE 234 BEDS AT THE [facility] Last Admin: 12/09/17 10:32 Dose: 40 mg Polyethylene Glycol (Miralax) 17 gm PO BID COUNTS INCLUDE 234 BEDS AT THE [facility] Last Admin: 12/09/17 19:12 Dose: 17 gm Polyethylene Glycol/Electrolytes (Golytely) 4,000 ml PO ONCE ONE Stop: 12/10/17 09:01 - Labs Labs: 12/09/17 08:02 12/09/17 08:02 PT 13.7 SECONDS (9.7-12.2) H 12/08/17 07:12 INR 1.2 12/08/17 07:12 APTT 33 SECONDS (21-34) 12/07/17 23:40 Attending/Attestation - Attestation I have personally seen and examined this patient.: Yes I have fully participated in the care of the patient.: Yes I have reviewed all pertinent clinical information, including history, physical exam and plan: Yes Notes (Text): 12/09/17 21:12 Patient seen earlier today on rounds. In a nutshell this is a 86 yo male with PMHx significant for prostate cancer s/p brachytherapy, CAD s/p PCI, CKD, diverticulosis/diverticulitis, HTN, Alzheimer's dementia who presented to the ED with rectal bleeding in setting of anti platelet (plavix). He also suffers from severe constipation. Hemodynamically stable. Hold plavix. EGD today did not reveal source of bleeding. Will prep for colonoscopy. Clear liquid diet and daily PPI. Daily CBC.
[2017-12-09 08:31] LABS: ALB/GLOB RATIO 1.1 (1.0-2.1); ALBUMIN 3.5 g/dL (3.5-5.0); ALT/SGPT 15 U/L (21-72); AST/SGOT 18 U/L (17-59); BLOOD UREA NITROGEN 18 mg/dL (9-20); CALCIUM 9.1 mg/dl (8.6-10.4); GFR AFRICAN-AMERICAN > 60; GFR NON-AFRICAN AMERICAN > 60
[2017-12-09] MEDS ORDERED: Propofol 10 mg/ml Inj (20 ML) ONE (13:49)
[2017-12-09] MEDS ORDERED: Etomidate 20 mg/10ml Inj IV ONE (13:50)
[2017-12-09] MEDS ORDERED: ePHEDrine 50 mg/ml Inj ONE (14:05)
--- NOTE | 2017-12-09 19:07 | CP.PCM.PN ---
Subjective - Date & Time of Evaluation Date of Evaluation: 12/09/17 Time of Evaluation: 12:00 - Subjective Subjective: clinically same Objective - Vital Signs/Intake and Output Vital Signs (last 24 hours): Temp Pulse Resp BP Pulse Ox 97.3 F L 58 L 20 159/56 H 98 12/09/17 16:35 12/09/17 16:35 12/09/17 16:35 12/09/17 16:35 12/09/17 16:35 Intake and Output: 12/09/17 12/10/17 18:59 06:59 Intake Total 730 Balance 730 - Medications Medications: Current Medications Albuterol/Ipratropium (Duoneb 3 Mg/0.5 Mg (3 Ml) Ud) 3 ml IH RQ6 PRN PRN Reason: Shortness of Breath Docusate Sodium (Colace) 100 mg PO BID [facility] Last Admin: 12/09/17 10:32 Dose: 100 mg Sodium Chloride (Sodium Chloride 0.9%) 1,000 mls @ 50 mls/hr IV .Q20H [facility] Last Admin: 12/09/17 05:12 Dose: 50 mls/hr Pantoprazole Sodium (Protonix Inj) 40 mg IVP Q12H [facility] Last Admin: 12/09/17 10:32 Dose: 40 mg Polyethylene Glycol (Miralax) 17 gm PO BID [facility] Polyethylene Glycol/Electrolytes (Golytely) 4,000 ml PO ONCE ONE Stop: 12/10/17 09:01 - Labs Labs: 12/09/17 08:02 12/09/17 08:02 PT 13.7 SECONDS (9.7-12.2) H 12/08/17 07:12 INR 1.2 12/08/17 07:12 APTT 33 SECONDS (21-34) 12/07/17 23:40 - Constitutional Appears: Well - Head Exam Head Exam: ATRAUMATIC, NORMAL INSPECTION, NORMOCEPHALIC - Eye Exam Eye Exam: EOMI, Normal appearance, PERRL Pupil Exam: NORMAL ACCOMODATION, PERRL - ENT Exam ENT Exam: Mucous Membranes Moist, Normal Exam - Neck Exam Neck Exam: Full ROM, Normal Inspection. absent: Lymphadenopathy - Respiratory Exam Respiratory Exam: Decreased Breath Sounds - Cardiovascular Exam Cardiovascular Exam: REGULAR RHYTHM, +S1, +S2 - GI/Abdominal Exam GI & Abdominal Exam: Soft, Diminished Bowel Sounds - Rectal Exam Rectal Exam: Deferred
[2017-12-09] MEDS: POLYETHYLENE GLYCOL 3350 17 GM/Dose PACKET PO SCH (19:12)
[2017-12-10 03:57] LABS: BASO % 0.6 % (0.0-2.0); EOS # 0.3 K/uL (0.0-0.7); EOS % 5.2 % (0.0-4.0); HEMOGLOBIN 9.5 g/dL (12.0-18.0); LYMPH # 1.4 K/uL (1.0-4.3); LYMPH % 23.3 % (20.0-40.0); MEAN CELL VOLUME 99.6 fL (80.0-94.0); MEAN CORPUSCULAR HEMOGLOBIN 33.6 pg (27.0-31.0); MEAN CORPUSCULAR HGB CONC 33.7 g/dL (33.0-37.0); MEAN PLATELET VOLUME 8.2 fL (7.2-11.7); MONO # 0.3 K/uL (0.0-0.8); MONO % 4.8 % (0.0-10.0); NEUT # 4.1 K/uL (1.8-7.0); NEUT % 66.1 % (50.0-75.0); RBC 2.83 Mil/uL (4.40-5.90); RED CELL DISTRIBUTION WIDTH 13.3 % (11.5-14.5); WHITE BLOOD COUNT 6.2 K/uL (4.8-10.8)
[2017-12-10 04:09] LABS: ALB/GLOB RATIO 1.1 (1.0-2.1); ALBUMIN 3.5 g/dL (3.5-5.0); ALT/SGPT 20 U/L (21-72); AST/SGOT 19 U/L (17-59); BLOOD UREA NITROGEN 15 mg/dL (9-20); CALCIUM 8.9 mg/dl (8.6-10.4); GFR AFRICAN-AMERICAN > 60; GFR NON-AFRICAN AMERICAN > 60
--- NOTE | 2017-12-10 08:54 | CP.PCM.PN ---
<DionzaAlexandro - Last Filed: 12/10/17 08:51> Subjective - Date & Time of Evaluation Date of Evaluation: 12/10/17 Time of Evaluation: 06:30 - Subjective Subjective: PGY5 GI Fellow Progress Note Patient seen and examined bedside this morning. The patient suffers with dementia, thus history is limited. Per nursing, no events overnight and no further reports of melena since yesterday afternoon. Patient denies any complaints such as abdominal pain, fever, chills, nausea, vomiting. Tolerating liquid diet without issue. 12 system ROS limited given Alzheimer dementia. Objective - Vital Signs/Intake and Output Vital Signs (last 24 hours): Temp Pulse Resp BP Pulse Ox 97.6 F 59 L 20 158/59 H 98 12/10/17 07:10 12/10/17 08:19 12/10/17 07:10 12/10/17 07:10 12/10/17 07:10 Intake and Output: 12/10/17 12/10/17 06:59 18:59 Intake Total 880 Balance 880 - Medications Medications: Current Medications Albuterol/Ipratropium (Duoneb 3 Mg/0.5 Mg (3 Ml) Ud) 3 ml IH RQ6 PRN PRN Reason: Shortness of Breath Docusate Sodium (Colace) 100 mg PO BID [facility] Last Admin: 12/09/17 19:12 Dose: 100 mg Sodium Chloride (Sodium Chloride 0.9%) 1,000 mls @ 50 mls/hr IV .Q20H [facility] Last Admin: 12/09/17 05:12 Dose: 50 mls/hr Pantoprazole Sodium (Protonix Inj) 40 mg IVP Q12H [facility] Last Admin: 12/09/17 21:16 Dose: 40 mg Polyethylene Glycol (Miralax) 17 gm PO BID [facility] Last Admin: 12/09/17 19:12 Dose: 17 gm Polyethylene Glycol/Electrolytes (Golytely) 4,000 ml PO ONCE ONE Stop: 12/10/17 09:01 - Labs Labs: 12/10/17 03:54 12/10/17 03:54 PT 13.7 SECONDS (9.7-12.2) H 12/08/17 07:12 INR 1.2 12/08/17 07:12 APTT 33 SECONDS (21-34) 12/07/17 23:40 - Constitutional Appears: Non-toxic, No Acute Distress - Eye Exam Eye Exam: EOMI, PERRL - ENT Exam ENT Exam: Mucous Membranes Dry - Respiratory Exam Respiratory Exam: Clear to Ausculation Bilateral. absent: Rales, Rhonchi, Wheezes - Cardiovascular Exam Cardiovascular Exam: RRR, +S1, +S2 - GI/Abdominal Exam GI & Abdominal Exam: Soft, Normal Bowel Sounds. absent: Distended, Firm, Guarding, Rigid, Tenderness, Organomegaly - Extremities Exam Extremities Exam: Normal Inspection. absent: Pedal Edema - Neurological Exam Neurological Exam: Altered, Awake - Psychiatric Exam Psychiatric exam: Normal Affect, Normal Mood - Skin Skin Exam: Dry, Warm Assessment and Plan - Assessment and Plan (Free Text) Assessment: Patient is an 86yo male with PMHx significant for prostate cancer s/p brachytherapy, CAD s/p PCI, CKD, diverticulosis/diverticulitis, HTN, Alzheimer' s dementia who presented to the ED with rectal bleeding -Acute blood loss anemia, melena - improved -Severe constipation -Diverticulosis/diverticulitis -CAD s/p PCI on Plavix (currently held since 12/06) -CKD -HTN -H/O prostate cancer s/p brachytherapy -Alzheimer's dementia Plan: -S/P EGD without any evidence of upper GI blood loss -Start GoLytely bowel prep today at 9am and encourage patient to drink throughout the day as tolerated -Clear liquid diet, NPO past midnight -Protonix can be changed to PO QAMAC -Continue Colace and Miralax -Continue to hold plavix - plan for colonoscopy tomorrow -Case to be discussed with patient's family but they agreed to this plan yesterday <Ed Mullins - Last Filed: 12/10/17 13:02> Objective - Vital Signs/Intake and Output Vital Signs (last 24 hours): Temp Pulse Resp BP Pulse Ox 97.6 F 59 L 20 158/59 H 98 12/10/17 07:10 12/10/17 08:19 12/10/17 07:10 12/10/17 07:10 12/10/17 07:10 Intake and Output: 12/10/17 12/10/17 06:59 18:59 Intake Total 880 Balance 880 - Medications Medications: Current Medications Albuterol/Ipratropium (Duoneb 3 Mg/0.5 Mg (3 Ml) Ud) 3 ml IH RQ6 PRN PRN Reason: Shortness of Breath Docusate Sodium (Colace) 100 mg PO BID [facility] Last Admin: 12/10/17 09:17 Dose: 100 mg Sodium Chloride (Sodium Chloride 0.9%) 1,000 mls @ 50 mls/hr IV .Q20H [facility] Last Admin: 12/09/17 05:12 Dose: 50 mls/hr Pantoprazole Sodium (Protonix Inj) 40 mg IVP Q12H [facility] Stop: 12/10/17 23:00 Last Admin: 12/10/17 09:17 Dose: 40 mg Pantoprazole Sodium (Protonix Ec Tab) 40 mg PO DAILY [facility] Polyethylene Glycol (Miralax) 17 gm PO BID [facility] Last Admin: 12/10/17 09:17 Dose: 17 gm - Labs Labs: 12/10/17 03:54 12/10/17 03:54 PT 13.7 SECONDS (9.7-12.2) H 12/08/17 07:12 INR 1.2 12/08/17 07:12 APTT 33 SECONDS (21-34) 12/07/17 23:40 Attending/Attestation - Attestation I have personally seen and examined this patient.: Yes I have fully participated in the care of the patient.: Yes I have reviewed all pertinent clinical information, including history, physical exam and plan: Yes Notes (Text): 12/10/17 12:59 I have seen and examined patient with GI fellow. No acute events overnight, he is seen resting in bed comfortably. He denies abdominal pain, nausea, vomiting , fever/chills. No bowel movements overnight or today thus far. Tolerating PO liquids without difficulty. Review of vitals from today shows elevated BP. Prostate cancer CAD s/p stent on plavix (held) HTN Dementia Anemia, rectal bleeding Constipation s/p EGD yesterday showing gastritis, esophagitis - Liquid diet as tolerated - H/H stable, has not required PRBC transfusion, continue to monitor - Will plan for colonoscopy tomorrow for further evaluation of rectal bleeding, suspicion for stercoral ulcer based on clinical scenario and CT imaging - Golytely bowel preparation today, NPO after midnight
[2017-12-10] MEDS ORDERED: Peg-Electrolyte Oral Soln 4L (Golytely) PO ONE (09:00)
[2017-12-10] MEDS: POLYETHYLENE GLYCOL 3350 17 GM/Dose PACKET PO SCH ×2 (09:17→18:14)
--- NOTE | 2017-12-10 13:57 | CARD ---
APPROVED REPORT EKG Measurement Heart [id number] <Conclusion> Normal sinus rhythm Voltage criteria for left ventricular hypertrophy T wave abnormality, consider anterolateral ischemia Abnormal ECG
--- NOTE | 2017-12-10 17:46 | CP.PCM.PN ---
Subjective - Date & Time of Evaluation Date of Evaluation: 12/10/17 Time of Evaluation: 13:20 - Subjective Subjective: clinically same Objective - Vital Signs/Intake and Output Vital Signs (last 24 hours): Temp Pulse Resp BP Pulse Ox 97.9 F 71 20 168/51 H 95 12/10/17 16:12 12/10/17 16:12 12/10/17 16:12 12/10/17 16:12 12/10/17 16:12 Intake and Output: 12/10/17 12/10/17 06:59 18:59 Intake Total 880 800 Balance 880 800 - Medications Medications: Current Medications Albuterol/Ipratropium (Duoneb 3 Mg/0.5 Mg (3 Ml) Ud) 3 ml IH RQ6 PRN PRN Reason: Shortness of Breath Docusate Sodium (Colace) 100 mg PO BID [facility] Last Admin: 12/10/17 09:17 Dose: 100 mg Sodium Chloride (Sodium Chloride 0.9%) 1,000 mls @ 50 mls/hr IV .Q20H [facility] Last Admin: 12/09/17 05:12 Dose: 50 mls/hr Pantoprazole Sodium (Protonix Inj) 40 mg IVP Q12H [facility] Stop: 12/10/17 23:00 Last Admin: 12/10/17 09:17 Dose: 40 mg Pantoprazole Sodium (Protonix Ec Tab) 40 mg PO DAILY [facility] Polyethylene Glycol (Miralax) 17 gm PO BID [facility] Last Admin: 12/10/17 09:17 Dose: 17 gm - Labs Labs: 12/10/17 03:54 12/10/17 03:54 PT 13.7 SECONDS (9.7-12.2) H 12/08/17 07:12 INR 1.2 12/08/17 07:12 APTT 33 SECONDS (21-34) 12/07/17 23:40 - Constitutional Appears: Well - Head Exam Head Exam: ATRAUMATIC, NORMAL INSPECTION, NORMOCEPHALIC - Eye Exam Eye Exam: EOMI, Normal appearance, PERRL Pupil Exam: NORMAL ACCOMODATION, PERRL - ENT Exam ENT Exam: Mucous Membranes Moist, Normal Exam - Neck Exam Neck Exam: Full ROM, Normal Inspection. absent: Lymphadenopathy - Respiratory Exam Respiratory Exam: Decreased Breath Sounds - Cardiovascular Exam Cardiovascular Exam: REGULAR RHYTHM, +S1, +S2 - GI/Abdominal Exam GI & Abdominal Exam: Soft, Diminished Bowel Sounds - Rectal Exam Rectal Exam: Deferred
[2017-12-10] MEDS: Sodium Chloride 0.9% 1,000 ML IV SCH (21:34)
[2017-12-11 08:20] LABS: BASO % 0.5 % (0.0-2.0); EOS # 0.2 K/uL (0.0-0.7); EOS % 2.2 % (0.0-4.0); HEMOGLOBIN 8.5 g/dL (12.0-18.0); LYMPH # 1.6 K/uL (1.0-4.3); LYMPH % 19.7 % (20.0-40.0); MEAN CELL VOLUME 98.3 fL (80.0-94.0); MEAN CORPUSCULAR HEMOGLOBIN 34.4 pg (27.0-31.0); MEAN CORPUSCULAR HGB CONC 34.9 g/dL (33.0-37.0); MEAN PLATELET VOLUME 8.4 fL (7.2-11.7); MONO # 0.3 K/uL (0.0-0.8); MONO % 4.3 % (0.0-10.0); NEUT # 5.8 K/uL (1.8-7.0); NEUT % 73.3 % (50.0-75.0); NRBC % 0.1 % (0.0-2.0); RBC 2.47 Mil/uL (4.40-5.90); RED CELL DISTRIBUTION WIDTH 13.4 % (11.5-14.5)
[2017-12-11 08:32] LABS: ALT/SGPT 20 U/L (21-72); AST/SGOT 19 U/L (17-59); BLOOD UREA NITROGEN 12 mg/dL (9-20); CALCIUM 8.2 mg/dl (8.6-10.4); GFR AFRICAN-AMERICAN > 60; GFR NON-AFRICAN AMERICAN > 60
[2017-12-11] MEDS: Potassium Chl 40 mEq in D5-1/2 1,000 ML IV SCH (09:51)
[2017-12-11] MEDS: Pantoprazole 40 mg EC Tab PO SCH ×2 (10:05→13:30)
[2017-12-11] MEDS: POLYETHYLENE GLYCOL 3350 17 GM/Dose PACKET PO SCH ×3 (10:05→18:20)
[2017-12-11] MEDS ORDERED: Propofol 10 mg/ml Inj (20 ML) ONE (12:12)
[2017-12-11] MEDS ORDERED: Bisacodyl 5mg EC Tab PO ONE ×2 (12:19→13:30)
[2017-12-11] MEDS ORDERED: Dextrose 50% SYRINGE Inj (50 ml) IV STA (12:59)
[2017-12-11] MEDS ORDERED: Peg-Electrolyte Oral Soln 4L (Golytely) PO ONE (13:00)
[2017-12-11] MEDS ORDERED: Dextrose 50% VIAL Inj (50 ml) IV ONE (13:11)
--- NOTE | 2017-12-11 17:36 | CP.PCM.PN ---
Subjective - Date & Time of Evaluation Date of Evaluation: 12/11/17 Time of Evaluation: 12:00 - Subjective Subjective: clinically same Objective - Vital Signs/Intake and Output Vital Signs (last 24 hours): Temp Pulse Resp BP Pulse Ox 98.1 F 62 18 164/60 H 98 12/11/17 15:51 12/11/17 15:51 12/11/17 15:51 12/11/17 15:51 12/11/17 15:51 Intake and Output: 12/11/17 12/11/17 06:59 18:59 Intake Total 1900 700 Balance 1900 700 - Medications Medications: Current Medications Albuterol/Ipratropium (Duoneb 3 Mg/0.5 Mg (3 Ml) Ud) 3 ml IH RQ6 PRN PRN Reason: Shortness of Breath Docusate Sodium (Colace) 100 mg PO BID [facility] Last Admin: 12/11/17 13:29 Dose: 100 mg Dextrose (Dextrose 5% In Water 1000 Ml) 1,000 mls @ 50 mls/hr IV .Q20H [facility] Last Admin: 12/11/17 15:27 Dose: Not Given Potassium Chloride/Dextrose/Sod Cl (Potassium Chl 40 Meq In D5-1/2ns) 1,000 mls @ 50 mls/hr IV .Q20H [facility] Last Admin: 12/11/17 09:51 Dose: 50 mls/hr Pantoprazole Sodium (Protonix Ec Tab) 40 mg PO DAILY [facility] Last Admin: 12/11/17 13:30 Dose: 40 mg Polyethylene Glycol (Miralax) 17 gm PO BID [facility] Last Admin: 12/11/17 13:29 Dose: 17 gm - Labs Labs: 12/11/17 08:05 12/11/17 08:05 PT 13.7 SECONDS (9.7-12.2) H 12/08/17 07:12 INR 1.2 12/08/17 07:12 APTT 33 SECONDS (21-34) 12/07/17 23:40 - Constitutional Appears: Well - Head Exam Head Exam: ATRAUMATIC, NORMAL INSPECTION, NORMOCEPHALIC - Eye Exam Eye Exam: EOMI, Normal appearance, PERRL Pupil Exam: NORMAL ACCOMODATION, PERRL - ENT Exam ENT Exam: Mucous Membranes Moist, Normal Exam - Neck Exam Neck Exam: Full ROM, Normal Inspection. absent: Lymphadenopathy - Respiratory Exam Respiratory Exam: Decreased Breath Sounds - Cardiovascular Exam Cardiovascular Exam: REGULAR RHYTHM, +S1, +S2 - GI/Abdominal Exam GI & Abdominal Exam: Soft, Diminished Bowel Sounds - Rectal Exam Rectal Exam: Deferred
[2017-12-12 00:36] LABS: BASO % 0.5 % (0.0-2.0); EOS # 0.3 K/uL (0.0-0.7); HEMOGLOBIN 8.6 g/dL (12.0-18.0); LYMPH # 1.8 K/uL (1.0-4.3); LYMPH % 26.4 % (20.0-40.0); MEAN CELL VOLUME 98.8 fL (80.0-94.0); MEAN CORPUSCULAR HEMOGLOBIN 33.5 pg (27.0-31.0); MEAN CORPUSCULAR HGB CONC 33.9 g/dL (33.0-37.0); MEAN PLATELET VOLUME 8.4 fL (7.2-11.7); MONO # 0.4 K/uL (0.0-0.8); MONO % 5.4 % (0.0-10.0); NEUT # 4.4 K/uL (1.8-7.0); NEUT % 63.7 % (50.0-75.0); NRBC % 0.1 % (0.0-2.0); RBC 2.56 Mil/uL (4.40-5.90); RED CELL DISTRIBUTION WIDTH 13.6 % (11.5-14.5); WHITE BLOOD COUNT 6.8 K/uL (4.8-10.8)
[2017-12-12 00:58] LABS: ALT/SGPT 22 U/L (21-72); AST/SGOT 17 U/L (17-59); BLOOD UREA NITROGEN 10 mg/dL (9-20); CALCIUM 8.3 mg/dl (8.6-10.4); GFR AFRICAN-AMERICAN > 60; GFR NON-AFRICAN AMERICAN > 60
[2017-12-12] MEDS: Potassium Chl 40 mEq in D5-1/2 1,000 ML IV SCH (06:23)
[2017-12-12] MEDS: Pantoprazole 40 mg EC Tab PO SCH ×2 (09:20→12:56)
[2017-12-12] MEDS: POLYETHYLENE GLYCOL 3350 17 GM/Dose PACKET PO SCH (09:20)
[2017-12-12] MEDS ORDERED: Potassium Chl 40 mEq in D5-1/2 1,000 ML IV SCH (11:00)
[2017-12-12] MEDS ORDERED: Propofol 10 mg/ml Inj (20 ML) ONE (11:04)
[2017-12-12 11:12] VITALS: O2SAT 100
--- NOTE | 2017-12-12 12:49 | CP.PCM.PN ---
Subjective - Date & Time of Evaluation Date of Evaluation: 12/12/17 Time of Evaluation: 12:46 - Subjective Subjective: Patient seen and examined, no acute events overnight. He denies abdominal pain , nausea, vomiting, or further rectal bleeding. s/p colonoscopy today showing poor bowel preparation, diverticulosis throughout the colon, multiple colon polyps. Objective - Vital Signs/Intake and Output Vital Signs (last 24 hours): Temp Pulse Resp BP Pulse Ox 97.4 F L 58 L 19 147/51 L 100 12/12/17 11:55 12/12/17 12:25 12/12/17 12:25 12/12/17 12:25 12/12/17 12:25 Intake and Output: 12/12/17 12/12/17 06:59 18:59 Intake Total 1480 300 Balance 1480 300 - Medications Medications: Current Medications Albuterol/Ipratropium (Duoneb 3 Mg/0.5 Mg (3 Ml) Ud) 3 ml IH RQ6 PRN PRN Reason: Shortness of Breath Docusate Sodium (Colace) 100 mg PO BID [facility] Last Admin: 12/12/17 09:19 Dose: Not Given Dextrose (Dextrose 5% In Water 1000 Ml) 1,000 mls @ 50 mls/hr IV .Q20H [facility] Last Admin: 12/12/17 04:24 Dose: Not Given Potassium Chloride 20 meq/ (Sodium Chloride) 110 mls @ 50 mls/hr IV Q2H [facility] Stop: 12/12/17 13:29 Potassium Chloride/Dextrose/Sod Cl (Potassium Chl 40 Meq In D5-1/2ns) 1,000 mls @ 50 mls/hr IV .Q20H [facility] Pantoprazole Sodium (Protonix Ec Tab) 40 mg PO DAILY [facility] Last Admin: 12/12/17 09:20 Dose: Not Given Polyethylene Glycol (Miralax) 17 gm PO BID [facility] Last Admin: 12/12/17 09:20 Dose: Not Given - Labs Labs: 12/12/17 00:31 12/12/17 00:31 PT 13.7 SECONDS (9.7-12.2) H 12/08/17 07:12 INR 1.2 12/08/17 07:12 APTT 33 SECONDS (21-34) 12/07/17 23:40 Assessment and Plan - Assessment and Plan (Free Text) Assessment: History of prostate cancer CAD s/p stent on plavix HTN Anemia, rectal bleeding - resolved - s/p EGD and colonoscopy showing gastritis, esophagitis, diverticulosis, multiple colon polyps, poor bowel preparation Chronic constipation Plan: - Advance diet as tolerated - H/H stable, continue to monitor - Continue with PPI therapy - Follow up biopsy results - From GI perspective, ok to discharge patient home with subsequent outpatient follow up. He will need repeat colonoscopy within 3 months given presence of subcentimeter polyps (not resected) and poor bowel preparation. Will sign off case, please reconsult as necessary, thank you.
--- NOTE | 2017-12-12 14:04 | CP.PCM.PN ---
Subjective - Date & Time of Evaluation Date of Evaluation: 12/12/17 Time of Evaluation: 09:50 - Subjective Subjective: clinically same Objective - Vital Signs/Intake and Output Vital Signs (last 24 hours): Temp Pulse Resp BP Pulse Ox 97.4 F L 58 L 19 147/51 L 100 12/12/17 11:55 12/12/17 12:25 12/12/17 12:25 12/12/17 12:25 12/12/17 12:25 Intake and Output: 12/12/17 12/12/17 06:59 18:59 Intake Total 1480 300 Balance 1480 300 - Medications Medications: Current Medications Albuterol/Ipratropium (Duoneb 3 Mg/0.5 Mg (3 Ml) Ud) 3 ml IH RQ6 PRN PRN Reason: Shortness of Breath Docusate Sodium (Colace) 100 mg PO BID [facility] Last Admin: 12/12/17 09:19 Dose: Not Given Dextrose (Dextrose 5% In Water 1000 Ml) 1,000 mls @ 50 mls/hr IV .Q20H [facility] Last Admin: 12/12/17 04:24 Dose: Not Given Potassium Chloride/Dextrose/Sod Cl (Potassium Chl 40 Meq In D5-1/2ns) 1,000 mls @ 50 mls/hr IV .Q20H [facility] Pantoprazole Sodium (Protonix Ec Tab) 40 mg PO DAILY [facility] Last Admin: 12/12/17 12:56 Dose: 40 mg Polyethylene Glycol (Miralax) 17 gm PO BID [facility] Last Admin: 12/12/17 09:20 Dose: Not Given - Labs Labs: 12/12/17 00:31 12/12/17 00:31 PT 13.7 SECONDS (9.7-12.2) H 12/08/17 07:12 INR 1.2 12/08/17 07:12 APTT 33 SECONDS (21-34) 12/07/17 23:40 - Constitutional Appears: Well - Head Exam Head Exam: ATRAUMATIC, NORMAL INSPECTION, NORMOCEPHALIC - Eye Exam Eye Exam: EOMI, Normal appearance, PERRL Pupil Exam: NORMAL ACCOMODATION, PERRL - ENT Exam ENT Exam: Mucous Membranes Moist, Normal Exam - Neck Exam Neck Exam: Full ROM, Normal Inspection. absent: Lymphadenopathy - Respiratory Exam Respiratory Exam: Decreased Breath Sounds - Cardiovascular Exam Cardiovascular Exam: REGULAR RHYTHM, +S1, +S2 - GI/Abdominal Exam GI & Abdominal Exam: Soft, Diminished Bowel Sounds - Rectal Exam Rectal Exam: Deferred
[2017-12-12 15:25] LABS: ALB/GLOB RATIO 0.9 (1.0-2.1); ALBUMIN 2.8 g/dL (3.5-5.0); ALT/SGPT 21 U/L (21-72); AST/SGOT 17 U/L (17-59); BLOOD UREA NITROGEN 8 mg/dL (9-20); CALCIUM 7.7 mg/dl (8.6-10.4); GFR AFRICAN-AMERICAN > 60; GFR NON-AFRICAN AMERICAN > 60
[2017-12-12 17:03] VITALS: RESP 20
[2017-12-12 17:05] VITALS: BP 150/63; PULSE 59; TEMP 97.8
--- NOTE | 2017-12-12 17:17 | CP.PCM.PN ---
Subjective - Date & Time of Evaluation Date of Evaluation: 12/12/17 Time of Evaluation: 17:14 - Subjective Subjective: PT SEEN AND EXAMINED TODAY BY DR Rosalie DURANT, DENIES ANY ABDOMINAL PAIN, N/V/D, RESP EASY AND UNLABORED. NAD. Objective - Vital Signs/Intake and Output Vital Signs (last 24 hours): Temp Pulse Resp BP Pulse Ox 97.8 F 59 L 20 150/63 100 12/12/17 17:04 12/12/17 17:04 12/12/17 17:04 12/12/17 17:04 12/12/17 17:04 Intake and Output: 12/12/17 12/12/17 06:59 18:59 Intake Total 1480 600 Balance 1480 600 - Medications Medications: Current Medications Albuterol/Ipratropium (Duoneb 3 Mg/0.5 Mg (3 Ml) Ud) 3 ml IH RQ6 PRN PRN Reason: Shortness of Breath Docusate Sodium (Colace) 100 mg PO BID [facility] Last Admin: 12/12/17 09:19 Dose: Not Given Dextrose (Dextrose 5% In Water 1000 Ml) 1,000 mls @ 50 mls/hr IV .Q20H [facility] Last Admin: 12/12/17 04:24 Dose: Not Given Potassium Chloride/Dextrose/Sod Cl (Potassium Chl 40 Meq In D5-1/2ns) 1,000 mls @ 50 mls/hr IV .Q20H [facility] Last Admin: 12/12/17 15:05 Dose: Not Given Pantoprazole Sodium (Protonix Ec Tab) 40 mg PO DAILY [facility] Last Admin: 12/12/17 12:56 Dose: 40 mg Polyethylene Glycol (Miralax) 17 gm PO BID [facility] Last Admin: 12/12/17 09:20 Dose: Not Given - Labs Labs: 12/12/17 00:31 12/12/17 15:07 PT 13.7 SECONDS (9.7-12.2) H 12/08/17 07:12 INR 1.2 12/08/17 07:12 APTT 33 SECONDS (21-34) 12/07/17 23:40 Assessment and Plan - Assessment and Plan (Free Text) Plan: 86 Y/O MALE WITH PMHX PROSTATE CANCER, HTN, CAD, S/P STENT ADMITTED FOR GI BLEED, ANEMIA S/P EGD AND COLONSCOPY COLONSCOPY- COLON POLYPS, DIVERTICULOSIS HGB STABLE (8.6), REPEAT CMP- K IMPROVED REPEAT COLONOSCOPY IN 3 MONTHS PT CLEARED FOR D/C PER DR DURANT AND GI
== END 2017-12-12 21:00 | DRG 378 ==
LOC: C.ER 22:56 → C.9E 23:56 → C.5S 12-09 11:29
PROVIDERS: ADMIT Internal Medicine Nephrology; ATTEND Internal Medicine Nephrology
PROC: 0DB68ZX Excision of Stomach, Via Natural or Artificial Opening Endoscopic, Diagnostic (ICD-10-PCS; 2017-12-09)
PROC: 0DBL8ZX Excision of Transverse Colon, Via Natural or Artificial Opening Endoscopic, Diagnostic (ICD-10-PCS; 2017-12-12)
PROC: 0DBH8ZX Excision of Cecum, Via Natural or Artificial Opening Endoscopic, Diagnostic (ICD-10-PCS; 2017-12-12)
PROC: 0DBK8ZX Excision of Ascending Colon, Via Natural or Artificial Opening Endoscopic, Diagnostic (ICD-10-PCS; principal; 2017-12-12 11:10)
DX: K92.1 Melena (principal); D62 Acute posthemorrhagic anemia; G30.9 Alzheimer's disease, unspecified; I48.91 Unspecified atrial fibrillation; F02.80 Dementia in other diseases classified elsewhere, unspecified severity, without behavioral disturbance, psychotic disturbance, mood disturbance, and anxiety; K57.92 Diverticulitis of intestine, part unspecified, without perforation or abscess without bleeding; M19.90 Unspecified osteoarthritis, unspecified site; Z95.5 Presence of coronary angioplasty implant and graft; Z87.891 Personal history of nicotine dependence; Z85.46 Personal history of malignant neoplasm of prostate; I25.10 Atherosclerotic heart disease of native coronary artery without angina pectoris; I12.9 Hypertensive chronic kidney disease with stage 1 through stage 4 chronic kidney disease, or unspecified chronic kidney disease; N18.9 Chronic kidney disease, unspecified; K29.50 Unspecified chronic gastritis without bleeding; K20.8 Other esophagitis; K59.09 Other constipation; K29.00 Acute gastritis without bleeding; K20.9 Esophagitis, unspecified